=== PATIENT | female | born 1950 | race Caucasian/White ===

== ENCOUNTER → 2016-12-07 | Outpatient (CLI) | payer MEDICARE, OTHER ==
[2016-12-07 09:21] LABS: ALT 40 U/L (9-52); AST 32 U/L (14-36); Alkaline Phosphatase 84 U/L (38-126); Anion Gap 8 mmol/L; Blood Urea Nitrogen 14 mg/dL (7-17); Calcium 9.2 mg/dL (8.4-10.2); Carbon Dioxide 26 mmol/L (22-30); Chloride 105 mmol/L (98-107); Cholesterol 206 mg/dL (<200); Glucose 81 mg/dL (74-99); HDL Cholesterol 94 mg/dL (40-60); Non-African American GFR(MDRD) >60 (>60 ml/min/1.73 sqM); Potassium 4.4 mmol/L (3.5-5.1); Sodium 139 mmol/L (137-145); Total Bilirubin 0.6 mg/dL (0.2-1.3); Total Protein 6.9 g/dL (6.3-8.2)
[2016-12-07 09:23] LABS: Appearance,Urine Clear (Clear); Bilirubin,Urine Negative (Negative); Glucose,Urine (UA) Negative (Negative); Ketones,Urine Negative (Negative); Leukocyte Esterase,Urine Negative (Negative); Nitrite,Urine Negative (Negative); PH, Urine 6.5 (5.0-8.0); Protein,Urine Negative (Negative); Specific Gravity,Urine 1.014 (1.001-1.035); UA Billing (MACRO vs. MICRO) CHEM; Urobilinogen,Urine <2.0 mg/dL (<2.0)
[2016-12-07 09:26] LABS: CH 29.1; HCT 41.3 % (34.0-46.0); HDW 2.13; HGB 13.1 gm/dL (11.4-16.0); MCH 28.9 pg (25.0-35.0); MCHC 31.6 g/dL (31.0-37.0); MCV 91.6 fL (80.0-100.0); Mean Platelet Volume 7.5; RBC 4.51 m/uL (3.80-5.40); RDW 14.5 % (11.5-15.5); WBC 3.5 k/uL (3.8-10.6)
--- NOTE | 2016-12-08 11:09 | MM ---
Reason for exam: screening (asymptomatic). Last mammogram was performed 1 year and 1 month ago. History: Patient is postmenopausal, history of other cancer, and is nulliparous. Family history of breast cancer in sister at age 55. 2 cyst aspirations of the right breast. Taking estrogen for 7 years 11 months beginning at age 49. Physical Findings: A clinical breast exam by your physician is recommended on an annual basis and results should be correlated with mammographic findings. MG 3D Screening Mammo W/Cad Bilateral CC and MLO view(s) were taken. Prior study comparison: November 04, 2015, bilateral MG 3d screening mammo w/cad. October 02, 2014, bilateral MG diagnostic mammo w CAD RENITA. September 19, 2013, bilateral MG work up mamm w CAD BILAT. The breast tissue is heterogeneously dense. This may lower the sensitivity of mammography. Finding: There are typically benign dystrophic calcifications in the left breast. There is no discrete abnormality. ASSESSMENT: Benign, BI-RAD 2 RECOMMENDATION: Routine screening mammogram of both breasts in 1 year.
== END | disposition home or self-care (01) ==
LOC: RADMAMWWP 08:03
PROVIDERS: ATTEND Family Medicine
DX: Z12.31 Encounter for screening mammogram for malignant neoplasm of breast (principal); Z00.00 Encounter for general adult medical examination without abnormal findings; E78.5 Hyperlipidemia, unspecified; M89.9 Disorder of bone, unspecified; E55.9 Vitamin D deficiency, unspecified
CPT/HCPCS: 80061; 80053; 84443; 85027; 81003; 82306; 77063; 36415; G0202

== ENCOUNTER → 2017-12-21 | Outpatient (CLI) | payer MEDICARE ==
--- NOTE | 2017-12-25 10:43 | MM ---
Reason for exam: screening (asymptomatic). Last mammogram was performed 1 year ago. History: Patient is postmenopausal, history of other cancer, and is nulliparous. Family history of breast cancer in sister at age 55. 2 cyst aspirations of the right breast. Taking estrogen for 7 years 11 months beginning at age 49. Physical Findings: A clinical breast exam by your physician is recommended on an annual basis and results should be correlated with mammographic findings. MG 3D Screening Mammo W/Cad Bilateral CC and MLO view(s) were taken. Prior study comparison: December 07, 2016, bilateral MG 3d screening mammo w/cad. November 04, 2015, bilateral MG 3d screening mammo w/cad. The breast tissue is heterogeneously dense. This may lower the sensitivity of mammography. There are benign appearing round calcifications in the left breast. There is no discrete abnormality. ASSESSMENT: Benign, BI-RAD 2 RECOMMENDATION: Routine screening mammogram of both breasts in 1 year.
== END | disposition home or self-care (01) ==
LOC: RADMAMWWP 08:45
PROVIDERS: ATTEND Family Medicine
DX: Z12.31 Encounter for screening mammogram for malignant neoplasm of breast (principal)
CPT/HCPCS: 77063; 77067

== ENCOUNTER → 2019-02-19 | Outpatient (CLI) | payer MEDICARE, OTHER ==
--- NOTE | 2019-02-21 10:51 | MM ---
Reason for exam: screening (asymptomatic). Last mammogram was performed 1 year and 2 months ago. History: Patient is postmenopausal, history of other cancer, and is nulliparous. Family history of breast cancer in sister at age 55. 2 cyst aspirations of the right breast. Taking estrogen for 7 years 11 months beginning at age 49. Physical Findings: A clinical breast exam by your physician is recommended on an annual basis and results should be correlated with mammographic findings. MG 3D Screening Mammo W/Cad Bilateral CC and MLO view(s) were taken. XCCL view(s) were taken of the right breast. Prior study comparison: December 21, 2017, bilateral MG 3d screening mammo w/cad. December 07, 2016, bilateral MG 3d screening mammo w/cad. The breast tissue is heterogeneously dense. This may lower the sensitivity of mammography. No significant changes when compared with prior studies. ASSESSMENT: Benign, BI-RAD 2 RECOMMENDATION: Routine screening mammogram of both breasts in 1 year.
== END | disposition home or self-care (01) ==
LOC: RADMAMWWP 14:05
PROVIDERS: ATTEND Family Medicine
DX: Z12.31 Encounter for screening mammogram for malignant neoplasm of breast (principal)
CPT/HCPCS: 77063; 77067

== ENCOUNTER → 2019-03-06 | Outpatient (CLI) | payer MEDICARE, OTHER ==
--- NOTE | 2019-03-06 09:36 | BD ---
EXAMINATION TYPE: Axial Bone Density DATE OF EXAM: 03/06/2019 COMPARISON: 10/02/2014 CLINICAL HISTORY: M [age] Height: 63.5 Weight: 147.0 FRAX RISK QUESTIONS: Alcohol (3 or more units per day): no Family History (Parent hip fracture): no Glucocorticoids (More than 3mos): no (Ex: prednisone, prednisolone, methylprednisolone, dexamethasone, and hydrocortisone). History of Fracture in Adulthood: no Secondary Osteoporosis: 1. Type 1 Diabetes: no 2. Hyperthyroidism: no 3. Menopause before 45: no 4. Malnutrition: no 5. Chronic liver disease: no Rheumatoid Arthritis: no Current Tobacco Use: no RISK FACTORS HISTORY OF: Family History of Osteoporosis: no Active: yes Diet low in dairy products/other sources of calcium: yes Postmenopausal woman: age 50 complete hysterectomy MEDICATIONS: Lexapro, eliquist, deltizen Additional History: EXAM MEASUREMENTS: Bone mineral densitometry was performed using the [employer] System. Bone mineral density as measured about the Lumbar spine is: ----- L1-L4(G/cm2): 1.054 T Score Values are as follows: ----- L2: -1.7 ----- L3: -0.8 ----- L4: -0.2 ----- L1-L4: -1.1 Bone mineral density has: decreased -3.6 % since study of: 10.02.2014 Bone mineral density about the R hip (g/cm2): 0.859 Bone mineral density about the L hip (g/cm2): 0.868 T Score values are as follows: -----R Neck: -1.3 -----L Neck: -1.2 -----R Total: -0.3 -----L Total: -0.6 Bone mineral density has: decreased -1.5 % since study of: 10.02.2014 IMPRESSION: Osteopenia (T Score between -2.5 and -1). There is slightly increased risk of fracture and the patient may be considered for treatment. Re-Screen 2-5 years. NOTE: T-SCORE=SD OF THE YOUNG ADULT MEAN.
== END | disposition home or self-care (01) ==
LOC: RADBDWWP 08:02
PROVIDERS: ATTEND Family Medicine
DX: M85.80 Other specified disorders of bone density and structure, unspecified site (principal)
CPT/HCPCS: 77080

== ENCOUNTER → 2019-03-25 | Day surgery (SDC) | payer MEDICARE, OTHER ==
[2019-03-21 11:57] VITALS: BMI 24.5
[~2019-03-25] MED LIST: LACTATED RINGERS 1,000 ML IV ONE; LACTATED RINGERS 1,000 ML IV SCH; PROPOFOL 10 MG/ML 20 ML VIAL IV ONE
[2019-03-25 10:04] VITALS: TEMP 98.4
--- NOTE | 2019-03-25 11:19 | P.PCN ---
Date of Procedure: 03/25/19 Description of Procedure: BRIEF HISTORY: Patient is a 68-year-old pleasant female scheduled for an elective colonoscopy as a part of evaluation given personal family history of colon cancer. She denies any change in bowel habits, abdominal pain but does note intermittent bright red blood per rectum. Family history of colon cancer in multiple family members. PROCEDURE PERFORMED: Colonoscopy. PREOPERATIVE DIAGNOSIS: Family history of colon cancer, last colonoscopy 5 years ago. ESTIMATED BLOOD LOSS: Minimal. IV sedation per Anesthesia. PROCEDURE: After informed consent was obtained, the patient, was brought into the endoscopy unit. IV sedation was administered by Anesthesia under continuous monitoring. Digital rectal examination was normal. Initially the Olympus CF-190 flexible video colonoscope was then inserted in the rectum, gradually advanced into the cecum without any difficulty. Careful examination was performed as the scope was gradually being withdrawn. Ileocecal valve and the appendiceal orifice were visualized and appeared normal. Prep was excellent. Mucosa of the cecum, ascending colon, transverse colon, descending colon, sigmoid colon, and rectum appeared normal. Retroflexion was performed in the rectum and no lesions were seen, low-grade internal hemorrhoids noted. The patient tolerated the procedure well. IMPRESSION: Normal-appearing colon from rectum to cecum. Low-grade internal hemorrhoids. RECOMMENDATIONS: Findings of this examination were discussed with the patient and her [id number]. Okay to resume diet. Okay to resume medications. Would recommend repeat colonoscopy in 5 years for family history of colon cancer. If further bleeding per rectum would recommend local hemorrhoidal care with sitz baths, topical steroid therapy such as Preparation H and stool softeners.
[2019-03-25 11:30] VITALS: BP 117/71; PULSE 52; RESP 16
== END ==
LOC: ORWHC2ENDO 09:42
PROVIDERS: ATTEND Internal Medicine
DX: K62.5 Hemorrhage of anus and rectum (principal); K64.8 Other hemorrhoids; Z80.0 Family history of malignant neoplasm of digestive organs; I48.91 Unspecified atrial fibrillation; I10 Essential (primary) hypertension; E78.5 Hyperlipidemia, unspecified; Z79.899 Other long term (current) drug therapy; Z79.01 Long term (current) use of anticoagulants; Z90.49 Acquired absence of other specified parts of digestive tract; Z90.710 Acquired absence of both cervix and uterus; Z90.89 Acquired absence of other organs; Z98.41 Cataract extraction status, right eye; Z98.42 Cataract extraction status, left eye
CPT/HCPCS: 45378; J2704

== ENCOUNTER → 2020-04-20 | Outpatient (CLI) | payer MEDICARE, OTHER ==
--- NOTE | 2020-04-21 13:35 | MM ---
Reason for exam: screening (asymptomatic). Last mammogram was performed 1 year and 2 months ago. History: Patient is postmenopausal, history of other cancer, and is nulliparous. Family history of breast cancer in sister at age 55. 2 cyst aspirations of the right breast. Taking estrogen for 7 years 11 months beginning at age 49. Physical Findings: A clinical breast exam by your physician is recommended on an annual basis and results should be correlated with mammographic findings. MG 3D Screening Mammo W/Cad Bilateral CC and MLO view(s) were taken. Prior study comparison: February 19, 2019, bilateral MG 3d screening mammo w/cad. December 21, 2017, bilateral MG 3d screening mammo w/cad. The breast tissue is heterogeneously dense. This may lower the sensitivity of mammography. No significant changes when compared with prior studies. ASSESSMENT: Benign, BI-RAD 2 RECOMMENDATION: Routine screening mammogram of both breasts in 1 year.
== END | disposition home or self-care (01) ==
LOC: RADMAMWWP 13:38
PROVIDERS: ATTEND Family Medicine
DX: Z12.31 Encounter for screening mammogram for malignant neoplasm of breast (principal)
CPT/HCPCS: 77063; 77067

== ENCOUNTER → 2021-03-11 | Outpatient (CLI) | payer MEDICARE, OTHER ==
--- NOTE | 2021-03-11 13:50 | BD ---
EXAMINATION TYPE: Axial Bone Density DATE OF EXAM: 03/11/2021 COMPARISON: NONE CLINICAL HISTORY: Height: 5 FT 4 1/2 IN Weight: 147 FRAX RISK QUESTIONS: Alcohol (3 or more units per day): NO Family History (Parent hip fracture): NO Glucocorticoids (More than 3mos): NO (Ex: prednisone, prednisolone, methylprednisolone, dexamethasone, and hydrocortisone). History of Fracture in Adulthood: NO Secondary Osteoporosis: 1. Type 1 Diabetes: NO 2. Hyperthyroidism: NO 3. Menopause before 45: STARTED 4. Malnutrition: NO 5. Chronic liver disease: NO Rheumatoid Arthritis: NO Current Tobacco Use: NO RISK FACTORS HISTORY OF: Surgery to Spine/Hip(right/left)/Wrist (right/left): NO Family History of Osteoporosis: NO Active: YES Diet low in dairy products/other sources of calcium: NO Postmenopausal woman: YES Take estrogen and/or progesterone medications:TOOK HRT FOR APPROX 10 YEARS NOT ANY LONGER Lost more than 2 inches in height since high school: NO Poor Health: GOOD Hyperparathyroidism: NO Adrenal Insufficiency: NO MEDICATIONS: Additional Medications: LEXAPRO, CARMINE CATALINA,DENIZEN, [place] Additional History: EXAM MEASUREMENTS: Bone mineral densitometry was performed using the [employer] System. Bone mineral density as measured about the Lumbar spine is: ----- L1-L4(G/cm2): 1.064 T Score Values are as follows: ----- L2: -2.1 ----- L3: -1.1 ----- L4: 0.4 ----- L1-L4: -1.0 Bone mineral density has: INCREASED 0.3 % since study of: 2018 Bone mineral density about the R hip (g/cm2): 0.912 Bone mineral density about the L hip (g/cm2): 0.863 T Score values are as follows: -----R Neck: -0.9 -----L Neck: -1.3 -----R Total: -0.1 -----L Total: -0.7 Bone mineral density has: INCREASED 1.2 % since study of: 2018 IMPRESSION: Osteopenia (T Score between -2.5 and -1). There is slightly increased risk of fracture and the patient may be considered for treatment. Re-Screen 2-5 years. NOTE: T-SCORE=SD OF THE YOUNG ADULT MEAN.
== END | disposition home or self-care (01) ==
LOC: RADBDWWP 08:05
PROVIDERS: ATTEND Obstetrics & Gynecology
DX: M85.89 Other specified disorders of bone density and structure, multiple sites (principal); Z78.0 Asymptomatic menopausal state
CPT/HCPCS: 77080

== ENCOUNTER → 2021-04-21 | Outpatient (CLI) | payer MEDICARE, OTHER ==
--- NOTE | 2021-04-26 12:39 | MM ---
Reason for exam: screening (asymptomatic). Last mammogram was performed 1 year ago. History: Patient is postmenopausal, history of other cancer, and is nulliparous. Family history of breast cancer in sister at age 55. 2 cyst aspirations of the right breast. Taking estrogen for 7 years 11 months beginning at age 49. Physical Findings: A clinical breast exam by your physician is recommended on an annual basis and results should be correlated with mammographic findings. MG 3D Screening Mammo W/Cad Bilateral CC and MLO view(s) were taken. Prior study comparison: April 20, 2020, bilateral MG 3d screening mammo w/cad. February 19, 2019, bilateral MG 3d screening mammo w/cad. There are scattered fibroglandular densities. No significant changes when compared with prior studies. ASSESSMENT: Benign, BI-RAD 2 RECOMMENDATION: Routine screening mammogram of both breasts in 1 year.
== END | disposition home or self-care (01) ==
LOC: RADMAMWWP 10:22
PROVIDERS: ATTEND Obstetrics & Gynecology
DX: Z12.31 Encounter for screening mammogram for malignant neoplasm of breast (principal); Z80.3 Family history of malignant neoplasm of breast; Z78.0 Asymptomatic menopausal state
CPT/HCPCS: 77063; 77067

== ENCOUNTER → 2022-08-19 | Outpatient (CLI) | payer MEDICARE, OTHER ==
--- NOTE | 2022-08-22 08:51 | MM ---
Reason for Exam: Screening (asymptomatic). Last mammogram was performed 1 year(s) and 4 month(s) ago. Patient History: Menarche at age 11. Patient has no children. Left ovary removed at age 51. Right ovary removed at age 51. Hysterectomy at age 51. Postmenopausal. Other cancer. Estrogen for 11 months from age 49 until age 65. Cyst Aspiration on the Right side. Cyst Aspiration on the Right side. Niece had breast cancer, age 51. Sister had breast cancer, age 55. Risk Values: No 5 year model risk: 3.8%. NCI Lifetime model risk: 10.2%. Prior Study Comparison: 02/19/2019 Bilateral Screening Mammogram, [facility]. 04/20/2020 Bilateral Screening Mammogram, [facility]. 04/21/2021 Bilateral Screening Mammogram, [facility]. Tissue Density: The breast tissue is heterogeneously dense. This may lower the sensitivity of mammography. Findings: Analyzed By CAD. There is no suspicious group of microcalcifications or new suspicious mass in either breast. Overall Assessment: Negative, BI-RAD 1 Management: Screening Mammogram of both breasts in 1 year. A clinical breast exam by your physician is recommended on an annual basis and results should be correlated with mammographic findings. [facility] will attempt to contact patient to return for supplemental views and ultrasound if indicated. Electronically signed and approved by: Roc Sparks DO
== END | disposition home or self-care (01) ==
LOC: RADMAMWWP 07:50
PROVIDERS: ATTEND Obstetrics & Gynecology
DX: Z12.31 Encounter for screening mammogram for malignant neoplasm of breast (principal); Z80.3 Family history of malignant neoplasm of breast; Z78.0 Asymptomatic menopausal state; Z98.890 Other specified postprocedural states
CPT/HCPCS: 77063; 77067

== ENCOUNTER → 2023-09-28 | Outpatient (CLI) | payer MEDICARE, OTHER ==
--- NOTE | 2023-09-29 17:07 | MM ---
Reason for Exam: Screening (asymptomatic). Last mammogram was performed 1 year(s) and 1 month(s) ago. Patient History: Menarche at age 11. Patient has no children. Left ovary removed at age 51. Right ovary removed at age 51. Hysterectomy at age 51. Postmenopausal. Other cancer. Estrogen for 11 months from age 49 until age 65. Cyst Aspiration on the Right side. Cyst Aspiration on the Right side. Niece had breast cancer, age 51. Sister had breast cancer, age 55. Risk Values: No 5 year model risk: 3.8%. NCI Lifetime model risk: 9.2%. Prior Study Comparison: 04/20/2020 Bilateral Screening Mammogram, [facility]. 04/21/2021 Bilateral Screening Mammogram, [facility]. 08/19/2022 Bilateral MG 3D screening mammo w/cad, [facility]. Tissue Density: The breasts are heterogeneously dense, which may obscure small masses. Findings: Analyzed By CAD. The pattern is symmetrical. Benign calcifications in the left breast No suspicious groups of microcalcifications, spiculated or lobular masses, architectural distortion or other secondary signs of malignancy are mammographically apparent. Overall Assessment: Benign, BI-RAD 2 Management: Screening Mammogram of both breasts in 1 year. A negative mammogram report should not preclude additional follow up of suspicious palpable abnormalities. Patient should continue monthly self breast exam. A clinical breast exam by your physician is recommended on an annual basis and results should be correlated with mammographic findings. Note on No scores and lifetime risk: 1. A No score greater than 3% is considered moderate risk. If this is the case, consider specialist referral to assess eligibility for a risk reducing agent. 2. If overall lifetime risk for the development of breast cancer is 20% or higher, the patient may qualify for future screening with alternating mammogram and breast MRI. Electronically signed and approved by: Ha Lainez D.O. Radiologis
== END | disposition home or self-care (01) ==
LOC: RADMAMWWP 12:54
PROVIDERS: ATTEND Family Medicine
DX: Z12.31 Encounter for screening mammogram for malignant neoplasm of breast (principal); Z80.3 Family history of malignant neoplasm of breast; Z78.0 Asymptomatic menopausal state
CPT/HCPCS: 77063; 77067

== ENCOUNTER → 2023-11-27 | Outpatient (CLI) | payer MEDICARE, OTHER ==
[2023-11-27 09:53] LABS: African American GFR (CKD) >90 (>60 ml/min/1.73 sqM); Blood Urea Nitrogen 16 mg/dL (7-17); Non-African American GFR(CKD) 86 (>60 ml/min/1.73 sqM)
--- NOTE | 2023-11-27 13:00 | CT ---
EXAMINATION TYPE: CT abdomen pelvis w con DATE OF EXAM: 11/27/2023 COMPARISON: NONE HISTORY: 73-year-old female I88.0 mesenteric lymphadenitis, Diarrhea x 5 months TECHNIQUE: Contiguous axial scanning of the abdomen and pelvis following administration of 100 ml Iso benny 300 IV contrast. Delayed images through the kidneys and coronal/sagittal reconstructions perform ed. CT DLP: 529.7 mGycm Automated exposure control for dose reduction was used. FINDINGS: The heart is borderline to mildly enlarged without pericardial effusion. Partially visualized aneurysm ascending aorta up to 4.6 cm. 4 mm medial right lower lobe pulmonary no dule, axial image 7. Seventh hazy groundglass opacities at the lung bases also noted. No pleural effu omar. No focal liver lesion or biliary ductal dilatation. Portal venous system is patent. Cholecystectomy c lips. 1.6 cm duodenal tic projecting into the pancreatic region. Adrenal glands, kidneys, spleen, pancreas and no gross abnormality. No dilated small bowel, free fluid, or free air. Moderate stool burden. There is mild circumferential wall thickening of the distal sigmoid colon on a xial image 76. Yolanda abdominal mesentery with associated mildly enlarged mesenteric lymph nodes measuring up to 1.1 cm in this region. Bladder is urine distended. Uterus surgically absent. Neither ovary clearly identified. No abnormal f luid collection in the pelvis or pelvic lymphadenopathy. Bones: Moderate degenerative change right hip and mild at the left. Hypertrophic facet arthropathy mi d to lower lumbar spine. Moderate degenerative disc disease lower thoracic spine. IMPRESSION: 1. YOLANDA MESENTERY WITH ASSOCIATED MILDLY ENLARGED MESENTERIC LYMPH NODES MEASURING UP TO 1.1 CM. FIN DINGS MAY BE SEEN WITH MESENTERIC ADENITIS. FOLLOW-UP CT IN 3-6 MONTHS TO ENSURE STABILITY/RESOLUTION EARLY LYMPHOMA CAN HAVE A SIMILAR APPEARANCE. 2. EITHER ADHERENT STOOL MATERIAL VERSUS MILD WALL THICKENING OF THE DISTAL SIGMOID COLON. CORRELATE FOR ANY SYMPTOMS OF A NONSPECIFIC MILD DISTAL COLITIS. 3. GROUNDGLASS DENSITIES IN THE LOWER LUNGS ARE NONSPECIFIC . THEY CAN BE SEEN WITH GENERALIZED HAZY ATELECTASIS OR AN INTERSTITIAL PNEUMONITIS SUCH NSIP OR DIP. THERE IS A 4 MM RIGHT LOWER LOBE PULM ONARY NODULE. 6 MONTH FOLLOW-UP CT CHEST TO REASSESS AND TO SURVEY THE REMAINDER OF THE LUNGS. 4. BORDERLINE TO MILD CARDIOMEGALY. PARTIALLY VISUALIZED ASCENDING AORTIC ANEURYSM UP TO 4.6 CM.
== END | disposition home or self-care (01) ==
LOC: RADCTMAIN 09:03
PROVIDERS: ATTEND Family Medicine
DX: I51.7 Cardiomegaly (principal); R59.0 Localized enlarged lymph nodes; J98.4 Other disorders of lung; R91.1 Solitary pulmonary nodule; I71.21 Aneurysm of the ascending aorta, without rupture
CPT/HCPCS: 82565; 84520; 74177; 36415; Q9967

== ENCOUNTER → 2024-09-30 | Outpatient (CLI) | payer MEDICARE, OTHER ==
--- NOTE | 2024-09-30 10:35 | US ---
EXAMINATION TYPE: US carotid duplex BILAT DATE OF EXAM: 09/30/2024 COMPARISON: NONE CLINICAL INDICATION: Female, 74 years old with history of G45.9; TIA Additional History: .... TECHNIQUE: Grayscale, color Doppler and spectral Doppler evaluation of the bilateral carotid systems and vertebral arteries. Indirect Doppler criteria was utilized. FINDINGS: EXAM MEASUREMENTS: RIGHT: Peak Systolic Velocity (PSV) cm/sec ----- Right CCA: 45.8 ----- Right ICA: 56.4 ----- Right ECA: 75.7 ICA/CCA ratio: 1.2 RIGHT: End Diastole cm/sec ----- Right CCA: 16.0 ----- Right ICA: 19.8 ----- Right ECA: 12.8 LEFT: Peak Systolic Velocity (PSV) cm/sec ----- Left CCA: 43.6 ----- Left ICA: 92.6 ----- Left ECA: 70.2 ICA/CCA ratio: 2.1 LEFT: End Diastole cm/sec ----- Left CCA: 14.1 ----- Left ICA: 40.2 ----- Left ECA: 15.0 VERTEBRALS (direction of flow): Right Vertebral: Antegrade Left Vertebral: Antegrade Rhythm: Normal [employer] NOTES: No significant plaque, velocities or stenosis seen. Borderline elevated ratio on t he left may be attributed to vessel tortuosity Color Doppler imaging shows patency with blood flow throughout the carotid artery. Spectral waveforms are within normal limits. IMPRESSION: Right: No hemodynamically significant stenosis. Left: Less than 50% stenosis of the carotid bifurcation. Criteria for Assigning % of Stenosis / Diameter reduction (Estimation based on the indirect measurements of the internal carotid artery velocities (ICA PSV). 1. Normal (no stenosis)=ICA PSV < 180 cm/s: ratio < 2.0: ICA EDV<40 cm/s. 2. Less than 50% stenosis=ICA PSV < 180 cm/s: ratio < 2.0: ICA EDV<40 cm/s. 3. 50 to 69% stenosis=ICA PSV of 180 to 230 cm/s: ration 2.0 ? 4.0: ICA EDV 40-100 cm/s. PSV 125-180 cm/sec and ICA/CCA PSV Ratio ? 2.0 is also consistent with 50-69% stenosis 4. Greater than 70% stenosis to near occlusion= ICA PSV > 230 cm/s: ratio > 4.0: ICA EDV > 100 cm/s. 5. Near occlusion= ICA PSV velocities may be low or undetectable: variable ratio and ICA EDV. 6. Total occlusion=unable to detect flow. [facility], , 09/30/2024 10:33 AM
--- NOTE | 2024-09-30 10:42 | MM ---
Reason for Exam: Screening (asymptomatic). Last mammogram was performed 1 year(s) and 1 month(s) ago. Patient History: Menarche at age 11. Patient has no children. Left ovary removed at age 51. Right ovary removed at age 51. Hysterectomy at age 51. Postmenopausal. Other cancer. Estrogen for 11 months from age 49 until age 65. Cyst Aspiration on the Right side. Cyst Aspiration on the Right side. Niece had breast cancer, age 51. Sister had breast cancer, age 55. Risk Values: No 5 year model risk: 3.8%. NCI Lifetime model risk: 8.6%. Prior Study Comparison: 04/21/2021 Bilateral Screening Mammogram, [facility]. 08/19/2022 Bilateral MG 3D screening mammo w/cad, [facility]. 09/28/2023 Bilateral MG 3D screening mammo w/cad, [facility]. Tissue Density: The breasts are heterogeneously dense, which may obscure small masses. Findings: Analyzed By CAD. Right breast: There is no suspicious group of microcalcifications or new suspicious mass. Benign-appearing calcifications right breast. Left breast: There is no suspicious group of microcalcifications or new suspicious mass. Benign-appearing calcifications left breast. Overall Assessment: Benign, BI-RAD 2 Management: Screening Mammogram of both breasts in [address] [facility] will attempt to contact patient to return for supplemental views and ultrasound if indicated. Patient should continue monthly self-breast exams. A clinical breast exam by your physician is recommended on an annual basis. This exam should not preclude additional follow-up of suspicious palpable abnormalities. Note on No scores and lifetime risk: 1. A No score greater than 3% is considered moderate risk. If this is the case, consider specialist referral to assess eligibility for a risk reducing agent. 2. If overall lifetime risk for the development of breast cancer is 20% or higher, the patient may qualify for future screening with alternating mammogram and breast MRI. [facility], , 09/30/2024 10:39 AM. Electronically signed and approved by: Roc Sparks DO
== END | disposition home or self-care (01) ==
LOC: RADMAMWWP 09:32
PROVIDERS: ATTEND Family Medicine
DX: Z12.31 Encounter for screening mammogram for malignant neoplasm of breast (principal); R92.333 Mammographic heterogeneous density, bilateral breasts; I65.22 Occlusion and stenosis of left carotid artery; Z78.0 Asymptomatic menopausal state; Z80.3 Family history of malignant neoplasm of breast; Z86.73 Personal history of transient ischemic attack (TIA), and cerebral infarction without residual deficits
CPT/HCPCS: 77063; 77067; 93880